=== PATIENT | female | born 1990 | race Caucasian/White ===

== ENCOUNTER 2017-06-18 00:36 | Inpatient (IN) | payer OTHER ==
[~2017-06-18] VITALS: Ht 160 cm; Wt 80.0 kg
[2017-06-18] VITALS (10 sets, daily range): BP systolic 134–183; BP diastolic 68–105
[~2017-06-18 00:36] MED LIST: AMOXICILLIN875 MG PO; BACTRIM,SEPT1 TABLET PO; DEPO-PROVER150 MG/ML IM; IBUPROFEN800 MG PO; METHADONE 22 MG/1 ML PO; METHADONE HCL40 MG PO; NORCO 5/3251 TABLET PO; PEN-VEE K,VEET500 MG PO; Subutex PO; ZOFRAN4 MG PO
[2017-06-18 02:08] LABS: AMPHETAMINES QUANT VALUE 0 NG/ML; BARBITUATES QUANT VALUE 0 NG/ML; BENZODIAZEPINES QUANT VALUE 0 NG/ML; BENZODIAZEPINES, URINE SCREEN Negative (200 ng/mL); MARIJUANA QUANT VALUE 0 NG/ML; OPIATES QUANTITATIVE VALUE 0 NG/ML; PHENCYCLIDINE QUANT VALUE 0 NG/ML
[2017-06-18 02:30] LABS: DRSB INTERNAL CONTROL PASS; PROBE CHECK PASS; SPECIMEN PROCESSING CONTROL PASS
[2017-06-18] MEDS ORDERED: MOTRIN800 MG PO (02:44)
[2017-06-18 02:55] LABS: EOSINOPHIL (%) 0.2 % (0-5); HEMATOCRIT 28.7 % (36.0-46.0); IMMATURE GRANULOCYTE (%) 0.5 % (0.0-0.7); IMMATURE GRANULOCYTE COUNT 0.1 K/uL; INSTRUMENT ABS NEUTROPHIL CT 11.2 K/uL; LYMPHOCYTE COUNT 1.5 K/uL (1.0-2.8); MCH 28.7 PG (29.0-34.0); MCHC 34.1 G/DL (30.0-36.0); MCV 84.2 FL (83-99); MEAN PLAT.VOLUME 11.9 uM^3 (9.5-12.4); MONOCYTE (%) 4.5 % (3-12); MONOCYTE COUNT 0.6 K/uL (0-0.8); NEUTROPHIL (%) 83.7 % (45-76); NEUTROPHIL COUNT 11.2 K/uL (1.8-6.4); PLATELET COUNT 249 K/uL (156-360); RBC DIS.WIDTH-CV 12.1 % (11.8-14.6); RED BLOOD COUNT 3.41 M/uL (3.80-5.20); WHITE BLOOD COUNT 13.4 K/uL (4.1-10.2)
[2017-06-18] MEDS ORDERED: ZOLOFT50 MG PO (03:50)
[2017-06-18 21:43] LABS: ADD MEDTOX COMMENT Y; AMPHETAMINE NEGATIVE (500 ng/mL); BARBITURATES NEGATIVE (200 ng/mL); BENZODIAZEPINES NEGATIVE (150 ng/mL); COCAINE PRESUMPTIVE POSITIVE (150 ng/mL); INTERNAL CONTROLS VALID? YES; METHADONE PRESUMPTIVE POSITIVE (200 ng/mL); METHAMPHETAMINE NEGATIVE (500 ng/mL); OPIATES (MORPHINE) NEGATIVE (100 ng/mL); OXYCODONE NEGATIVE (100 ng/mL); PHENCYCLIDINE NEGATIVE (25 ng/mL); PROPOXYPHENE NEGATIVE (300 ng/mL); THC CANNABINOIDS NEGATIVE (50 ng/mL); TRICYCLIC ANTIDEPRESSANTS NEGATIVE (300 ng/mL)
[2017-06-19 07:50] VITALS: BP 133/92
[2017-06-19 12:00] VITALS: BP 130/93
[2017-06-19 15:40] VITALS: BP 117/85
[2017-06-19 22:54] VITALS: BP 126/76
[2017-06-20 07:12] VITALS: BP 125/77
== END 2017-06-20 14:20 | disposition home or self-care (01) | DRG 775 ==
LOC: LDRP-OP 00:36 → 2WEST 00:37
PROVIDERS: Nurse Practitioner
DX: O60.14X0 Preterm labor third trimester with preterm delivery third trimester, not applicable or unspecified (principal); O62.3 Precipitate labor; O62.2 Other uterine inertia; O77.0 Labor and delivery complicated by meconium in amniotic fluid; O69.81X0 Labor and delivery complicated by cord around neck, without compression, not applicable or unspecified; O99.324 Drug use complicating childbirth; F11.20 Opioid dependence, uncomplicated; F14.10 Cocaine abuse, uncomplicated; Z3A.35 35 weeks gestation of pregnancy; Z37.0 Single live birth; O99.214 Obesity complicating childbirth; E66.9 Obesity, unspecified; Z68.30 Body mass index [BMI] 30.0-30.9, adult; O99.334 Smoking (tobacco) complicating childbirth; F17.210 Nicotine dependence, cigarettes, uncomplicated
CPT/HCPCS: 80306 90; 84999; 85025; 87070; 87075; 87077; 87081; 87186; 87205; 87653; J2590

== ENCOUNTER 2017-07-21 09:59 | Emergency (ER) | payer OTHER ==
[~2017-07-21] VITALS: Ht 160 cm; Wt 73.8 kg
[~2017-07-21 09:59] MED LIST changes: +MOTRIN800 MG PO; +ZOLOFT50 MG PO
[2017-07-21 13:43] LABS: HEMATOCRIT 36.6 % (36.0-46.0); MCH 25.7 PG (29.0-34.0); MCHC 30.6 G/DL (30.0-36.0); MCV 83.9 FL (83-99); RBC DIS.WIDTH-CV 14.3 % (11.8-14.6); RBC DIS.WIDTH-SD 43.7 % (39-53); RED BLOOD COUNT 4.36 M/uL (3.80-5.20); WHITE BLOOD COUNT 5.4 K/uL (4.1-10.2)
[2017-07-21 13:49] LABS: ADD MIUA? YES; BILIRUBIN NEGATIVE; BLOOD NEGATIVE; COLOR YELLOW ((YELLOW)); GLUCOSE (STRIP) NEGATIVE; KETONES NEGATIVE; LEUKOCYTES MODERATE; NITRITE NEGATIVE; PROTEIN (STRIP) NEGATIVE; SPECIFIC GRAVITY 1.015 (1.000-1.030); UROBILINOGEN 0.2 MG/DL (0.2-1.0)
[2017-07-21 13:51] LABS: CHLORIDE 106 mEq/L (99-109); POTASSIUM 4.7 mEq/L (3.7-5.4); SODIUM 138 mEq/L (136-147)
[2017-07-21 13:53] LABS: GLUCOSE 106 mg/dL (70-99)
[2017-07-21 13:54] LABS: ANION GAP 11 MEQ/L (2-14)
[2017-07-21 13:57] LABS: GFR ESTIMATE (CALCULATED) > 59 mL/min/; UREA NITROGEN (BUN) 16 mg/dL (9-23)
[2017-07-21 14:00] LABS: ADD MEDTOX COMMENT Y; AMPHETAMINE NEGATIVE (500 ng/mL); BARBITURATES NEGATIVE (200 ng/mL); BENZODIAZEPINES NEGATIVE (150 ng/mL); COCAINE PRESUMPTIVE POSITIVE (150 ng/mL); INTERNAL CONTROLS VALID? YES; METHADONE PRESUMPTIVE POSITIVE (200 ng/mL); METHAMPHETAMINE NEGATIVE (500 ng/mL); OPIATES (MORPHINE) NEGATIVE (100 ng/mL); OXYCODONE NEGATIVE (100 ng/mL); PHENCYCLIDINE NEGATIVE (25 ng/mL); PROPOXYPHENE NEGATIVE (300 ng/mL); THC CANNABINOIDS NEGATIVE (50 ng/mL); TRICYCLIC ANTIDEPRESSANTS NEGATIVE (300 ng/mL)
[2017-07-21 14:05] LABS: BACTERIA NONE SEEN /HPF; EPITHELIAL CELLS 1+ /HPF; MUCUS TRACE /LPF; RED BLOOD CELLS 0-5 /HPF (0-5); WHITE BLOOD CELLS 0-5 /HPF (0-5)
[2017-07-21 14:15] LABS: PLAT.SUFFICIENCY ADEQUATE; PLATELET COUNT 359 K/uL (156-360)
[2017-07-21] MEDS ORDERED: ASPIRIN325 MG PO (15:38)
[2017-07-21 15:47] VITALS: BP 119/77
[2017-07-23 09:12] LABS: LYME DISEASE SEROLOGY SCREEN NEGATIVE (NEGATIVE)
== END 2017-07-21 15:47 | disposition home or self-care (01) ==
LOC: EME 09:59
PROVIDERS: Physician Assistant
DX: R20.2 Paresthesia of skin (principal); M54.9 Dorsalgia, unspecified; R51 Headache; F11.99 Opioid use, unspecified with unspecified opioid-induced disorder; F17.200 Nicotine dependence, unspecified, uncomplicated
CPT/HCPCS: 80048; 81003; 82607; 84443; 84999; 85027; 86618; 99281; 99285